=== PATIENT | male | born 1970 | race Caucasian/White ===

== ENCOUNTER 2022-10-30 15:43 | Emergency (ER) | payer OTHER, SELFPAY ==
--- NOTE | ~2022-10-30 | XR_ITS ---
EXAMINATION: XR KNEE, RIGHT CLINICAL INFORMATION: Pain COMPARISON: None available. TECHNIQUE: Four views of the right knee. FINDINGS: Bones and soft tissues are normal. No fracture or joint effusion. Alignment is anatomic. Joint spaces are well maintained. No abnormal soft tissue calcification. XR/XR knee RT 4V IMPRESSION: Normal right knee.
--- NOTE | ~2022-10-30 | XR_ITS ---
EXAMINATION: XR CHEST CLINICAL INFORMATION: Status post fall. Chest trauma. COMPARISON: None available. TECHNIQUE: Frontal view of the chest was obtained. FINDINGS: Cardiomediastinal silhouette is normal. No abnormal tracheal deviation. The lungs are adequately expanded. No focal consolidation, changes of congestion, pleural effusions or pneumothorax are seen. No displaced rib fractures. Visualized upper abdomen is unremarkable. XR/XR chest 1V IMPRESSION: No acute pulmonary process. No evidence of displaced rib fractures.
--- NOTE | ~2022-10-30 | CT_ITS ---
EXAMINATION: HEAD CT, CERVICAL SPINE CT AND FACIAL BONE CT WITHOUT IV CONTRAST CLINICAL INFORMATION: Trauma. COMPARISON: None available. TECHNIQUE: Axial images through the head, cervical spine and facial bones without IV contrast. Sagittal and coronal reconstructions on the technologist workstation were performed. Patient dose/DLP [phone] milligray per cm. This CT examination was performed using dose optimization techniques as appropriate, variously including the following: *Automated exposure control *Adjustment of mA and/or kV according to patient size (this includes techniques or standardized protocols for targeted exams where dose is matched to indication/reason for exam; i.e. extremities or head) *Use of iterative reconstruction technique FINDINGS: Head CT: There is no evidence of an extra-axial collection. There is no evidence of intra or extra-axial hemorrhage. The ventricles and extra-axial CSF spaces are appropriate. Esposito-white matter differentiation is normal. No mass, mass effect or infarct is seen. There is no skull fracture. There are bilateral nasal bone fractures and fracture of the nasal septum. Visualized paranasal sinuses, mastoid air cells and middle ears are clear. CERVICAL SPINE CT: Bone alignment is normal. No fracture or dislocation. There is mild degenerative spondylosis at C5-C6. Disc spaces are normal. There are mild degenerative changes at the C1 dens articulation. Prevertebral soft tissues are normal. Visualized lung apices are clear. FACIAL BONES: There are bilateral nasal bone fractures. These appear acute. The nasal septum is deviated to the left. No other fracture is seen. Paranasal sinuses, mastoid air cells and middle ears are clear. The orbits are normal-appearing. The temporomandibular joints are normal. There are 2 adjacent right superior incisor dental caries. CT/CT cervical spine wo IV con IMPRESSION: HEAD CT: No acute intracranial findings. CERVICAL SPINE: Mild degenerative changes. FACIAL BONE CT: Bilateral nasal bone fractures.
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
[2022-10-30 15:48] VITALS: BP 140/80; PULSE 91; RESP 18; TEMP 36.6; O2SAT 96; BMI 28.8
[2022-10-30] MEDS: Bacitracin Oint 0.9 GM PACKET 4 APPL TOPICAL (17:28)
--- NOTE | 2022-10-30 17:44 | PC.NURSE ---
PT ASSESSED AND DISCHARGED BY PROVIDER FROM TRIAGE
== END 2022-10-30 17:45 | disposition home or self-care (01) ==
PROVIDERS: Emergency Provider Emergency Medicine Emergency Medical Services; PCP Nurse Practitioner Family
DX: S06.0XAA Concussion with loss of consciousness status unknown, initial encounter (principal); S02.2XXA Fracture of nasal bones, initial encounter for closed fracture; S00.81XA Abrasion of other part of head, initial encounter; S00.31XA Abrasion of nose, initial encounter; S50.311A Abrasion of right elbow, initial encounter; S80.211A Abrasion, right knee, initial encounter; V18.0XXA Pedal cycle driver injured in noncollision transport accident in nontraffic accident, initial encounter; M25.561 Pain in right knee; Y93.55 Activity, bike riding; Y92.9 Unspecified place or not applicable; Y99.9 Unspecified external cause status
CPT/HCPCS: 70450; 70486; 71045; 72125; 73564; 99281; 99284